=== PATIENT | male | born 1970 | race African-American/Black ===

== ENCOUNTER 2017-03-06 16:06 | Emergency (ER) | payer MEDICARE, OTHER ==
[2017-03-06 16:14] VITALS: BP 127/82
--- NOTE | 2017-03-06 16:24 | ER Document Report ---
ED GI/ - General Chief Complaint: Urinary Problem Stated Complaint: FREQUENT URINATION Time Seen by Provider: 03/06/17 16:21 Mode of Arrival: Ambulatory Information source: Patient, Relative TRAVEL OUTSIDE OF THE [place] IN LAST 30 DAYS: No - HPI Patient complains to provider of: Hematuria - mother states pt. has been having frequency and hematuria for the past 2-3 days. - Related Data Allergies/Adverse Reactions: No Known Allergies Allergy (Verified 03/06/17 16:11) Past Medical History - General Information source: Relative - Social History Smoking Status: Never Smoker Cigarette use (# per day): No Chew tobacco use (# tins/day): No Smoking Education Provided: No Family History: Reviewed & Not Pertinent Malignancy Medical History: Reports Hx Brain Cancer - Immunizations Hx Diphtheria, Pertussis, Tetanus Vaccination: Yes Review of Systems - Review of Systems Constitutional: No symptoms reported Cardiovascular: No symptoms reported Respiratory: No symptoms reported Gastrointestinal: No symptoms reported Genitourinary: See HPI, Frequency, Hematuria Musculoskeletal: No symptoms reported -: Yes All other systems reviewed and negative Physical Exam - Vital signs Vitals: Temp Pulse Resp BP Pulse Ox 98.8 F 100 16 127/82 H 95 03/06/17 16:13 03/06/17 16:13 03/06/17 16:13 03/06/17 16:13 03/06/17 16:13 - General General appearance: Appears well In distress: None - Respiratory Respiratory status: No respiratory distress Breath sounds: Normal - Cardiovascular Rhythm: Regular Heart sounds: Normal auscultation - Abdominal Inspection: Normal Tenderness: Nontender Course - Vital Signs Vital signs: Temp Pulse Resp BP Pulse Ox 98.8 F 100 16 127/82 H 95 03/06/17 16:13 03/06/17 16:13 03/06/17 16:13 03/06/17 16:13 03/06/17 16:13
[2017-03-06 17:41] LABS: APPEARANCE,URINE CLEAR; BILIRUBIN,URINE NEGATIVE (NEGATIVE); GLUCOSE, URINE NEGATIVE (NEGATIVE); KETONES,URINE NEGATIVE (NEGATIVE); LEUKOCYTE ESTERASE,URINE TRACE (NEGATIVE); NITRITE,URINE NEGATIVE (NEGATIVE); PROTEIN,URINE NEGATIVE (NEGATIVE); URINE SPECIFIC GRAVITY 1.021; UROBILINOGEN,URINE NEGATIVE mg/dL (<2.0)
== END 2017-03-06 17:56 | disposition home or self-care (01) ==
LOC: ER 16:06
DX: N30.00 Acute cystitis without hematuria (principal)
CPT/HCPCS: 81001; 99283

== ENCOUNTER 2017-03-08 10:36 | Emergency (ER) | payer MEDICARE, OTHER ==
[2017-03-08] MEDS ORDERED: NORMAL SALINE 1000 ML 1,000 ML IV ONE (11:28)
[2017-03-08] MEDS ORDERED: METHYLPREDNISOLONE INJ 125 MG/2 ML SDV IV ONE (11:28)
--- NOTE | 2017-03-08 11:31 | ER Document Report ---
ED Medical Screen (RME) - General Chief Complaint: Allergic Reaction Stated Complaint: POSSIBLE ALLERGIC REACTION Time Seen by Provider: 03/08/17 11:27 Notes: Patient is brought in by mom. Patient has a chronic diagnosis of brain tumor. He was recently seen here and diagnosed with a urinary tract infection. He has taken several days of p.o. Bactrim. Today he began to have swelling and erythema of the upper extremities and trunk. He denies any problems breathing or swallowing. No oral lesions have been noted. Patient also claims to have decreased hearing in the left ear and family states they noticed discharge from this here today. On exam the left ear does appear infected. The right ear is occluded with cerumen. TRAVEL OUTSIDE OF THE [place] IN LAST 30 DAYS: No - Related Data Allergies/Adverse Reactions: No Known Allergies Allergy (Verified 03/08/17 10:49) Past Medical History - Social History Chew tobacco use (# tins/day): No Frequency of alcohol use: None Drug Abuse: None - Past Medical History Cardiac Medical History: Reports: Hx Hypertension Renal/ Medical History: Denies: Hx Peritoneal Dialysis Malignancy Medical History: Reports Hx Brain Cancer - Immunizations Hx Diphtheria, Pertussis, Tetanus Vaccination: Yes Physical Exam - Vital signs Vitals: Temp Pulse Resp BP Pulse Ox 98.6 F 109 H 18 116/74 98 03/08/17 10:51 03/08/17 10:51 03/08/17 10:51 03/08/17 10:51 03/08/17 10:51 Course - Vital Signs Vital signs: Temp Pulse Resp BP Pulse Ox 98.6 F 109 H 18 116/74 98 03/08/17 10:51 03/08/17 10:51 03/08/17 10:51 03/08/17 10:51 03/08/17 10:51
[2017-03-08 12:38] LABS: ABSOLUTE EOSINOPHILS # (AUTO) 0.2 10^3/uL (0.0-0.6); ABSOLUTE LYMPHOCYTES (AUTO) 1.6 10^3/uL (0.5-4.7); ABSOLUTE MONOCYTES (AUTO) 0.4 10^3/uL (0.1-1.4); ABSOLUTE NEUT (AUTO) 11.1 10^3/uL (1.7-8.2); BASOPHILS % (AUTO) 0.4 % (0-2); EOSINOPHILS % (AUTO) 1.2 % (0-6); HEMATOCRIT 44.5 % (37.9-51.0); HEMOGLOBIN 14.8 g/dL (13.5-17.0); HGB HCT DIFFERENCE -0.1; LYMPHOCYTES % (AUTO) 12.2 % (13-45); MEAN CORPUSCULAR HEMOGLOBIN 29.3 pg (27.0-33.4); MEAN CORPUSCULAR HGB CONC 33.3 g/dL (32.0-36.0); MEAN CORPUSCULAR VOLUME 88 fl (80-97); MONOCYTES % (AUTO) 3.2 % (3-13); RED BLOOD COUNT 5.06 10^6/uL (4.35-5.55); RED CELL DISTRIBUTION WIDTH 14.4 % (11.5-14.0); WHITE BLOOD COUNT 13.4 10^3/uL (4.0-10.5)
[2017-03-08 12:57] LABS: ALANINE AMINOTRANSFERASE 38 U/L (21-72); ALBUMIN 3.5 g/dL (3.5-5.0); ALKALINE PHOSPHATASE 59 U/L (38-126); ANION GAP 15 (5-19); ASPARTATE AMINO TRANSFERASE 42 U/L (17-59); BILIRUBIN,DIRECT 0.3 mg/dL (0.0-0.4); BILIRUBIN,TOTAL 0.5 mg/dL (0.2-1.3); BLOOD UREA NITROGEN 15 mg/dL (7-20); CALCIUM 8.6 mg/dL (8.4-10.2); CARBON DIOXIDE 24 mmol/L (22-30); CHLORIDE 102 mmol/L (98-107); CREATININE RESULT 1.35 mg/dL (0.52-1.25); GLUCOSE 98 mg/dL (75-110); POTASSIUM 4.3 mmol/L (3.6-5.0); SODIUM 140.7 mmol/L (137-145); TOTAL PROTEIN 5.5 g/dL (6.3-8.2)
--- NOTE | 2017-03-08 13:51 | ER Document Report ---
ED Allergic Reaction - General Chief Complaint: Allergic Reaction Stated Complaint: POSSIBLE ALLERGIC REACTION Time Seen by Provider: 03/08/17 11:27 Mode of Arrival: Wheelchair Information source: Patient, Parent Notes: Patient has a history of brain tumor since . He states that he was recently seen here for a urinary tract infection and given Septra. He has taken his first dose this morning and then developed a rash. He does not have any known history of allergies to medications. He denies any trouble speaking or swallowing. No trouble breathing. He has not noticed any abnormal sensations in his mouth or tongue swelling. No lip soreness swelling or lesions. Patient has not been lightheaded or dizzy. Symptoms of been consistent with an allergic reaction consisting of erythema and swelling of the extremities and trunk. Nothing has made it better or worse. It is been constant. There is been mild to moderate. There is no radiation of the symptoms. TRAVEL OUTSIDE OF THE [place] IN LAST 30 DAYS: No - Related Data Allergies/Adverse Reactions: sulfamethoxazole [From Bactrim] Allergy (Verified 03/08/17 11:30) trimethoprim [From Bactrim] Allergy (Verified 03/08/17 11:30) Past Medical History - General Information source: Patient, Parent - Social History Smoking Status: Never Smoker Chew tobacco use (# tins/day): No Frequency of alcohol use: None Drug Abuse: None Family History: Reviewed & Not Pertinent Patient has suicidal ideation: No Patient has homicidal ideation: No - Past Medical History Cardiac Medical History: Reports: Hx Hypertension Renal/ Medical History: Denies: Hx Peritoneal Dialysis Malignancy Medical History: Reports Hx Brain Cancer - Immunizations Hx Diphtheria, Pertussis, Tetanus Vaccination: Yes Review of Systems - Review of Systems Constitutional: denies: Chills, Fever Cardiovascular: denies: Chest pain, Palpitations Respiratory: denies: Cough, Short of breath -: Yes All other systems reviewed and negative Physical Exam - Vital signs Vitals: Temp Pulse Resp BP Pulse Ox 98.6 F 109 H 18 116/74 98 03/08/17 10:51 03/08/17 10:51 03/08/17 10:51 03/08/17 10:51 03/08/17 10:51 Interpretation: Tachycardic - General General appearance: Appears well, Alert In distress: None - No distress. Abdomen is okay - HEENT Head: Normocephalic, Atraumatic Eyes: Normal Pupils: PERRL External canal: Cerumen impaction, Other - Right canal is occluded with cerumen Tympanic membrane: Bulging, Injected, Purulent effusion, Other - Left membrane is erythematous and injected and bulging with some surrounding effusion. - Respiratory Respiratory status: No respiratory distress Chest status: Nontender Breath sounds: Normal Chest palpation: Normal - Cardiovascular Rhythm: Regular, Other - Repeat exam shows pulse to be 88 at 1:40 PM on my exam. Heart sounds: Normal auscultation Murmur: No - Abdominal Inspection: Normal Distension: No distension Bowel sounds: Normal Tenderness: Nontender Organomegaly: No organomegaly - Back Back: Normal, Nontender - Extremities General upper extremity: Other - Bilateral upper extremities have urticaria and erythema. He also has a nonblanching erythematous rash on the left upper extremity. General lower extremity: Normal inspection, Nontender, Normal color, Normal temperature. No: Marjorie's sign - Neurological Neuro grossly intact: Yes Cognition: Normal [place] Coma Scale Eye Opening: Spontaneous [place] Coma Scale Verbal: Oriented [place] Coma Scale Motor: Obeys Commands [place] Coma Scale Total: 15 Additional motor exam normals: Weakness, Other - Right upper extremity and lower extremities. This is chronic. Sensory: Normal - Psychological Associated symptoms: Normal affect, Normal mood - Skin Skin Temperature: Warm Skin Moisture: Dry Skin Color: Other - Patient has diffuse urticaria and erythema of the upper extremities and trunk. He also has a separate rash which seems to consistently nonblanching erythema and macules. There are no oral lesions or lip lesions. Course - Re-evaluation Re-evalutation: 03/08/17 13:50 On reexam at 140. Patient is sleeping comfortably but easily awoken. He denies any symptoms. The rash appears to be resolving. There is no evidence of Pineda-Rayo syndrome. There is no evidence of more than one system involvement. Vital signs are unremarkable. - Vital Signs Vital signs: Temp Pulse Resp BP Pulse Ox 98.6 F 109 H 18 116/74 98 03/08/17 10:51 03/08/17 10:51 03/08/17 10:51 03/08/17 10:51 03/08/17 10:51 - Laboratory Result Diagrams: 03/08/17 12:15 03/08/17 12:15 Laboratory results interpreted by me: 03/08/17 03/08/17 12:15 12:15 WBC 13.4 H RDW 14.4 H Seg Neutrophils % 83.0 H Lymphocytes % 12.2 L Absolute Neutrophils 11.1 H Creatinine 1.35 H Est GFR (Non-Af Amer) 56 L Total Protein 5.5 L Discharge - Discharge Clinical Impression: Left otitis media with effusion Allergic drug reaction Qualifiers: Encounter type: initial encounter Qualified Code(s): T78.40XA - Allergy, unspecified, initial encounter Condition: Stable Disposition: HOME, SELF-CARE Instructions: Otitis Media ([facility]), Acute Allergic Reaction to Drugs ([facility]) Additional Instructions: Please be rechecked by your primary care physician in 2-3 days. Your creatinine (which is a measure of your kidney function) is mildly elevated. This is most likely due to some mild dehydration. Please increase your fluid intake and have your creatinine rechecked at her next doctor's visit. Prescriptions: Cefdinir 300 mg PO BID 7 Days #14 capsule Diphenhydramine HCl [Benadryl] 25 mg PO Q6 PRN 4 Days #16 capsule PRN Reason: Prednisone 50 mg PO DAILY 5 Days #5 tablet
[2017-03-08 14:28] VITALS: BP 113/58
== END 2017-03-08 14:24 | disposition home or self-care (01) ==
LOC: ER 10:36
DX: L27.0 Generalized skin eruption due to drugs and medicaments taken internally (principal); T49.0X5A Adverse effect of local antifungal, anti-infective and anti-inflammatory drugs, initial encounter; H65.92 Unspecified nonsuppurative otitis media, left ear; N39.0 Urinary tract infection, site not specified; I10 Essential (primary) hypertension; R00.0 Tachycardia, unspecified; R53.1 Weakness; Z85.841 Personal history of malignant neoplasm of brain
CPT/HCPCS: 99283; 96361; 96374; 36415; 85025; 80053; J2930; J7030

== ENCOUNTER → 2017-10-12 | Outpatient (CLI) | payer MEDICARE, OTHER ==
--- NOTE | 2017-10-12 15:21 | RADIOLOGY REPORT (SQ) ---
EXAM DESCRIPTION: VENOUS UNILATERAL LOWER COMPLETED DATE/TIME: 10/12/2017 3:13 pm REASON FOR STUDY: RLE PAIN, ACUTE EMBOLI I82.401 ACUTE EMBOLISM AND THOMBOS UNSP DEEP VEINS OF R LO W COMPARISON: None. TECHNIQUE: Dynamic and static dobbins scale and color images acquired of the right leg venous system. S elected spectral images acquired with additional compression and augmentation maneuvers. The contrala teral common femoral vein and saphenofemoral junction were also imaged. Images stored on PACS. LIMITATIONS: None. FINDINGS: COMMON FEMORAL: Normal phasicity, compression and augmentation. No visualized echogenic ma terial on dobbins scale. No defects on color images. FEMORAL: Normal compression and augmentation. No visualized echogenic material on dobbins scale. No defe cts on color images. POPLITEAL: Normal compression, augmentation. No visualized echogenic material on dobbins scale. No defec ts on color images. CALF VESSELS: Normal compression, augmentation. No visualized echogenic material on dobbins scale. No de fects on color images. GSV and SSV: Normal compression, augmentation. No visualized echogenic material on dobbins scale. No def ects on color images. ANY DEEP VENOUS INSUFFICIENCY: No. ANY EVIDENCE OF POPLITEAL CYST: No. OTHER: No other significant finding. CONTRALATERAL COMMON FEMORAL VEIN AND SAPHENOFEMORAL JUNCTION: Normal phasicity, compression and augmentation. No visualized echogenic material on dobbins scale. No de fects on color images. IMPRESSION: NO EVIDENCE OF DVT OR SVT IN THE RIGHT LEG. TECHNICAL DOCUMENTATION: JOB ID: [id number] [employer]- All Rights Reserved Reading location - IP/workstation name: [email or web address]
== END ==
LOC: SP 13:58
PROVIDERS: ATTEND Podiatrist Foot & Ankle Surgery
DX: I82.401 Acute embolism and thrombosis of unspecified deep veins of right lower extremity (principal)
CPT/HCPCS: 93971

== ENCOUNTER 2018-02-07 18:06 | Emergency (ER) | payer MEDICARE, OTHER ==
[2018-02-07] MEDS ORDERED: PREDNISONE 20 MG TABLET PO ONE (19:36)
[2018-02-07] MEDS ORDERED: FAMOTIDINE 20 MG TABLET PO ONE (19:37)
--- NOTE | 2018-02-07 19:39 | ER Document Report ---
HPI - HPI Pain Level: 0 Notes: Patient is a 47-year-old male who presents with chief complaint of possible allergic reaction. Patient's family member at bedside state that he was having some itching so she gave him [id number] generic diphenhydramine. She reports that he then developed mild hives. She believes he is allergic to the diphenhydramine. Patient denies any difficulty swallowing, is speaking in full and complete sentences. - CONSTITUTIONAL Constitutional: DENIES: Fever, Chills - EENT EENT: DENIES: Sore Throat, Ear Pain, Eye problems - NEURO Neurology: DENIES: Headache, Weakness, Vision blurred, Dizzinesss / Vertigo - CARDIOVASCULAR Cardiovascular: DENIES: Chest pain - RESPIRATORY Respiratory: DENIES: Trouble Breathing, Coughing - GASTROINTESTINAL Gastrointestinal: DENIES: Abdominal Pain, Black / Bloody Stools - URINARY Urinary: DENIES: Dysuria, Urgency, Frequency - MUSCULOSKELETAL Musculoskeletal: DENIES: Extremity pain Past Medical History - General Information source: Patient - Social History Smoking Status: Never Smoker Chew tobacco use (# tins/day): No Frequency of alcohol use: None Drug Abuse: None Family History: Reviewed & Not Pertinent Patient has suicidal ideation: No Patient has homicidal ideation: No - Past Medical History Cardiac Medical History: Reports: Hx Hypertension Renal/ Medical History: Denies: Hx Peritoneal Dialysis Malignancy Medical History: Reports Hx Brain Cancer - Immunizations Hx Diphtheria, Pertussis, Tetanus Vaccination: Yes Vertical Provider Document - CONSTITUTIONAL Notes: PHYSICAL EXAMINATION: GENERAL: Well-appearing, well-nourished and in no acute distress. HEAD: Atraumatic, normocephalic. EYES: Pupils equal round extraocular movements intact, conjunctiva are normal. ENT: Nares patent, no airway swelling noted, patient speaking in full and complete sentences and is able to swallow without difficulty. NECK: Normal range of motion LUNGS: No respiratory distress Musculoskeletal: Normal range of motion NEUROLOGICAL: Normal speech, normal gait. PSYCH: Normal mood, normal affect. SKIN: Warm, Dry, normal turgor, scattered red rash consistent with hives noted across chest and back, rash is blanchable. - INFECTION CONTROL TRAVEL OUTSIDE OF THE [place] IN LAST 30 DAYS: No Course - Re-evaluation Re-evalutation: Patient's examination is consistent with mild allergic reaction. Will give patient both Pepcid and prednisone, will hold off on diphenhydramine as family member thinks this is the cause of the allergic reaction. Patient will be discharged home in stable condition. - Vital Signs Vital signs: Temp Pulse Resp BP Pulse Ox 97.8 F 104 H 16 124/69 98 02/07/18 18:18 10 18:18 02/07/18 18:18 02/07/18 18:18 02/07/18 18:18 Discharge - Discharge Clinical Impression: Rash Condition: Stable Disposition: HOME, SELF-CARE Additional Instructions: It is unclear what your rash is being caused by. Please take the prednisone and the Pepcid this should help calm down your symptoms. Please follow-up with your primary care provider, call them tomorrow for an appointment I would like you to be reevaluated by them in the next 3 days. Return to the emergency department if you develop worsening symptoms such as difficulty breathing, shortness of breath or difficulty swallowing. Prescriptions: Famotidine [Pepcid 40 mg Tablet] 40 mg PO BID #10 tablet Prednisone [Deltasone 20 mg Tablet] 3 tab PO DAILY 4 Days #12 tablet
[2018-02-07 19:52] VITALS: BP 104/57
== END 2018-02-07 19:52 | disposition home or self-care (01) ==
LOC: ER 18:06
DX: L50.0 Allergic urticaria (principal); T78.40XA Allergy, unspecified, initial encounter; X58.XXXA Exposure to other specified factors, initial encounter; I10 Essential (primary) hypertension
CPT/HCPCS: 99282; A9270 ×2; J7512

== ENCOUNTER 2018-02-09 12:31 | Emergency (ER) | payer MEDICARE ==
--- NOTE | 2018-02-09 13:09 | ER Document Report ---
ED Medical Screen (RME) - General Chief Complaint: Chest Pain Stated Complaint: CHEST PAIN, RASH Time Seen by Provider: 02/09/18 13:03 TRAVEL OUTSIDE OF THE [place] IN LAST 30 DAYS: No - HPI Notes: 02/09/18 13:08 Chest pain and a rash - Related Data Allergies/Adverse Reactions: sulfamethoxazole [From Bactrim] Allergy (Verified 02/09/18 12:32) trimethoprim [From Bactrim] Allergy (Verified 02/09/18 12:32) Past Medical History - Social History Chew tobacco use (# tins/day): No Frequency of alcohol use: None Drug Abuse: None - Past Medical History Cardiac Medical History: Reports: Hx Hypertension Renal/ Medical History: Denies: Hx Peritoneal Dialysis Malignancy Medical History: Reports Hx Brain Cancer - Immunizations Hx Diphtheria, Pertussis, Tetanus Vaccination: Yes Review of Systems - Review of Systems Cardiovascular: Chest pain Skin: Rash Physical Exam - Vital signs Vitals: Temp Pulse Resp BP Pulse Ox 98.1 F 88 20 127/56 H 97 02/09/18 12:59 02/09/18 12:59 02/09/18 12:59 02/09/18 12:59 02/09/18 12:59 - Respiratory Respiratory status: No respiratory distress Chest status: Nontender Breath sounds: Normal Chest palpation: Normal - Cardiovascular Rhythm: Regular Heart sounds: Normal auscultation Course - Vital Signs Vital signs: Temp Pulse Resp BP Pulse Ox 98.1 F 88 20 127/56 H 97 02/09/18 12:59 02/09/18 12:59 02/09/18 12:59 02/09/18 12:59 02/09/18 12:59
[2018-02-09 13:55] LABS: HEMATOCRIT 40.8 % (37.9-51.0); HEMOGLOBIN 13.5 g/dL (13.5-17.0); MEAN CORPUSCULAR HGB CONC 33.1 g/dL (32.0-36.0); MEAN CORPUSCULAR VOLUME 88 fl (80-97); PLATELET COUNT 290 10^3/uL (150-450); RED BLOOD COUNT 4.67 10^6/uL (4.35-5.55); RED CELL DISTRIBUTION WIDTH 14.5 % (11.5-14.0)
--- NOTE | 2018-02-09 13:55 | RADIOLOGY REPORT (SQ) ---
EXAM DESCRIPTION: CHEST 2 VIEWS COMPLETED DATE/TIME: 02/09/2018 1:44 pm REASON FOR STUDY: cp COMPARISON: None. EXAM PARAMETERS: NUMBER OF VIEWS: two views TECHNIQUE: Digital Frontal and Lateral radiographic views of the chest acquired. RADIATION DOSE: NA LIMITATIONS: none FINDINGS: LUNGS AND PLEURA: No opacities, masses or pneumothorax. No pleural effusion. MEDIASTINUM AND HILAR STRUCTURES: No masses or contour abnormalities. HEART AND VASCULAR STRUCTURES: Heart normal size. No evidence for failure. BONES: No acute findings. HARDWARE: None in the chest. OTHER: No other significant finding. IMPRESSION: NO ACUTE RADIOGRAPHIC FINDING IN THE CHEST. TECHNICAL DOCUMENTATION: JOB ID: [id number] [employer]- All Rights Reserved Reading location - IP/workstation name: [email or web address]
--- NOTE | 2018-02-09 14:01 | ER Document Report ---
ED General - General Chief Complaint: Chest Pain Stated Complaint: CHEST PAIN, RASH Time Seen by Provider: 02/09/18 13:03 Notes: Patient is a 47-year-old male with developmental delay that presents to the emergency department for chief complaint of left chest pain. Patient has pain over the last few days with reaching with his left arm, when he is stretching to reach for something. He points to his chest and towards his shoulder. He does not have pain when he is not reaching for anything. Has not had shortness of breath. The patient is a poor historian due to his developmental delay. Mother states he just started complaining of this yesterday. He was recently in the emergency department and was being treated for a skin rash along his neck back and arms, and was started on prednisone, he has had 2 doses so far. She is also concerned about this. Patient denies having any pain in his chest at this time, and denies any recent fevers, chills, cough or shortness of breath or difficulty breathing. Past Medical History: Hypertension, history of brain tumor Past Surgical History: Radiation to the brain Social History: Denies tobacco, alcohol or drug use Family History: Reviewed and noncontributory for presenting illness Allergies: Reviewed, see documented allergy list. REVIEW OF SYSTEMS: Unless otherwise stated in this report the patient's positive and negative responses for review of systems for constitutional, eyes, ENT, cardiovascular, respiratory, gastrointestinal, neurological, genitourinary, musculoskeletal, and integumentary systems and related systems to the presenting problem are either as stated in the HPI or were not pertinent or were negative for the symptoms and/or complaints related to the presenting medical problem. PHYSICAL EXAMINATION: Vital signs reviewed, nursing noted reviewed. GENERAL: Well-appearing, well-nourished and in no acute distress. HEAD: Atraumatic, normocephalic. EYES: Eyes appear normal, extraocular movements intact, sclera anicteric, conjunctiva are normal. ENT: nares patent, oropharynx clear without exudates. Moist mucous membranes. NECK: Normal range of motion, supple without lymphadenopathy LUNGS: Breath sounds clear to auscultation bilaterally and equal. No wheezes rales or rhonchi. Reproducible chest wall tenderness with palpation HEART: Regular rate and rhythm without murmurs ABDOMEN: Soft, nontender, normoactive bowel sounds. No rebound, guarding, or rigidity. No masses appreciated. EXTREMITIES: Nontender, good range of motion, no pitting or edema. NEUROLOGICAL: No focal neurological deficits. The right upper extremity, has minimal movement, this is chronic according to the patient's mother, from his brain tumor that he had a 1 years old, left upper extremity has good strength, as well as the left and right lower extremities bilaterally. PSYCH: Normal mood, normal affect. SKIN: Warm, Dry, normal turgor, erythematous skin rash noted to the neck, shoulders, and right arm, consistent with eczema TRAVEL OUTSIDE OF THE [place] IN LAST 30 DAYS: No - Related Data Allergies/Adverse Reactions: sulfamethoxazole [From Bactrim] Allergy (Verified 02/09/18 12:32) trimethoprim [From Bactrim] Allergy (Verified 02/09/18 12:32) Past Medical History - Social History Smoking Status: Never Smoker Chew tobacco use (# tins/day): No Frequency of alcohol use: None Drug Abuse: None Family History: Reviewed & Not Pertinent Patient has suicidal ideation: No Patient has homicidal ideation: No - Past Medical History Cardiac Medical History: Reports: Hx Hypertension Renal/ Medical History: Denies: Hx Peritoneal Dialysis Malignancy Medical History: Reports Hx Brain Cancer - Immunizations Hx Diphtheria, Pertussis, Tetanus Vaccination: Yes Physical Exam - Vital signs Vitals: Temp Pulse Resp BP Pulse Ox 98.1 F 88 20 127/56 H 97 02/09/18 12:59 02/09/18 12:59 02/09/18 12:59 02/09/18 12:59 02/09/18 12:59 Course - Re-evaluation Re-evalutation: Presentation of chest pain in an otherwise well appearing patient. Low clinical suspicion for ACS given clinical history, exam, EKG without ST elevations or depressions, and negative initial troponin. HEART score less than or equal to 3. PE also seems unlikely given clinical history, absence of tachycardia or dyspnea. Patient is PERC criteria negative. CXR without evidence of pneumothorax or pneumonia. No widened mediastinum. Aortic dissection also seems unlikely given history, symmetric pulses, CXR, and vitals. HEART Score: History 0 ECG 0 Age 1 Risk Factors 1 Troponin 0 Total: 2 Chest pain in a patient without evidence of cardiac or other serious etiology on workup today. I discussed with patient that, based on their age, risk factors and emergency department testing today, the likelihood that their symptoms are related to a heart attack is very low (estimated risk of heart attack or over the next 30 days of less than 1%). The patient demonstrates decision making capacity and has verbalized an understanding of these risks to me. Based on this, the patient has chosen to follow-up as an outpatient. Usual chest pain return precautions reviewed. The patient states understanding and agreement with this plan. On his blood work he does have a mild leukocytosis, this is most likely secondary to the patient's prednisone use currently, it is neutrophil predominant Mother was advised to treat the rash, with moisturizing lotions, and to finish the prednisone and follow-up with primary care physician. - Vital Signs Vital signs: Temp Pulse Resp BP Pulse Ox 98.1 F 88 20 127/56 H 97 02/09/18 12:59 02/09/18 12:59 02/09/18 12:59 02/09/18 12:59 02/09/18 12:59 - Laboratory Result Diagrams: 02/09/18 12:25 02/09/18 12:25 Laboratory results interpreted by me: 02/09/18 02/09/18 12:25 12:25 WBC 16.0 H RDW 14.5 H Abs Neuts (Manual) 11.4 H Abs Monocytes (Manual) 2.1 H Carbon Dioxide 33 H Discharge - Discharge Clinical Impression: Rash Chest pain Qualifiers: Chest pain type: unspecified Qualified Code(s): R07.9 - Chest pain, unspecified Condition: Stable Disposition: HOME, SELF-CARE Instructions: Chest Wall Pain ([facility]), Atopic Dermatitis (Eczema) ([facility]) Additional Instructions: Please follow-up with the primary care physician, you can use topical moisturizing creams, the best ones for this are CeraVe and Lubriderm lotions that can help with itching and the rash. Referrals: DEONNA FARAH MD [ACTIVE STAFF] - Follow up as needed (or his primary care physician)
[2018-02-09 14:04] LABS: ALANINE AMINOTRANSFERASE 27 U/L (21-72); ALBUMIN 4.1 g/dL (3.5-5.0); ALKALINE PHOSPHATASE 77 U/L (38-126); ANION GAP 7 (5-19); ASPARTATE AMINO TRANSFERASE 25 U/L (17-59); BILIRUBIN,DIRECT 0.2 mg/dL (0.0-0.4); BILIRUBIN,TOTAL 0.4 mg/dL (0.2-1.3); BLOOD UREA NITROGEN 12 mg/dL (7-20); CALCIUM 9.4 mg/dL (8.4-10.2); CARBON DIOXIDE 33 mmol/L (22-30); CHLORIDE 102 mmol/L (98-107); CREATINE KINASE 140 U/L (55-170); GLUCOSE 87 mg/dL (75-110); POTASSIUM 3.6 mmol/L (3.6-5.0); SODIUM 141.7 mmol/L (137-145); TOTAL PROTEIN 6.8 g/dL (6.3-8.2)
[2018-02-09 14:13] LABS: ABSOLUTE LYMPHOCYTES# (MANUAL) 2.6 10^3/uL (0.5-4.7); ABSOLUTE MONOCYTES # (MANUAL) 2.1 10^3/uL (0.1-1.4); ABSOLUTE NEUTROPHILS# (MANUAL) 11.4 10^3/uL (1.7-8.2); BASOPHILS % (MANUAL) 0 % (0-2); EOSINOPHILS % (MANUAL) 0 % (0-6); LYMPHOCYTES % (MANUAL) 14 % (13-45); MONOCYTES % (MANUAL) 13 % (3-13); SEGMENTED NEUTROPHILS % (MAN) 71 % (42-78); TOTAL CELLS COUNTED 100
[2018-02-09 14:14] LABS: ANISOCYTOSIS SLIGHT; OVALOCYTES SLIGHT; PLATELET COMMENT ADEQUATE; POIKILOCYTOSIS SLIGHT
[2018-02-09 14:15] LABS: CREATINE KINASE MB 1.77 ng/mL (<4.55); TROPONIN I < 0.012 ng/mL
[2018-02-09 14:39] VITALS: BP 118/56
--- NOTE | 2018-02-09 22:37 | EKG REPORT ---
SEVERITY:- BORDERLINE ECG - SINUS RHYTHM BORDERLINE LEFT AXIS DEVIATION BORDERLINE T ABNORMALITIES, ANT-LAT LEADS : Confirmed by: Sylvia Palomino 09-Feb-2018 22:36:41
== END 2018-02-09 14:48 | disposition home or self-care (01) ==
LOC: ER 12:31
DX: R21 Rash and other nonspecific skin eruption (principal); R07.9 Chest pain, unspecified; M79.602 Pain in left arm; R62.50 Unspecified lack of expected normal physiological development in childhood; I10 Essential (primary) hypertension
CPT/HCPCS: 36415; 71046; 80053; 82550; 82553; 84484; 85025; 93005; 93010; 99285

== ENCOUNTER → 2019-08-30 | Outpatient (CLI) | payer MEDICARE, OTHER ==
--- NOTE | 2019-08-31 09:26 | RADIOLOGY REPORT (SQ) ---
EXAM DESCRIPTION: MRI HEAD COMBO IMAGES COMPLETED DATE/TIME: 08/30/2019 5:22 pm REASON FOR STUDY: D49.7 NEOPLM OF UNSP BEHAV OF ENDO GLANDS AND OTH PRT NERVOUS SYS D49.7 NEOPLM OF UNSP BEHAV OF ENDO GLANDS AND OTH PRT NERVOU COMPARISON: 01/31/2016 TECHNIQUE: Multiplanar imaging includes noncontrasted T1, T2, FLAIR, diffusion with ADC map and post gadolinium contrast T1 sequences. Images stored on PACS. CONTRAST TYPE AND DOSE: 15 mL Prohance. RENAL FUNCTION: Not indicated. ACR Type II contrast agent associated with few, if any, unconfounded cases of NSF LIMITATIONS: Motion artifact. FINDINGS: There has been interval increase in size of heterogeneously enhancing extra-axial mass lef t parietal convexity, previously 1.2 x 0.9 cm, now 4.7 x 2.9 cm. Dominant similar mass left sylvian fissure 4.6 x 4.5 cm AP by transverse diameter, stable. Several additional smaller extra-axial harshad s left cerebral hemisphere are not significantly changed. There is been increase in associated vasog enic edema with 8 mm of iqtx-nw-[id number] midline shift. No hemorrhage. Posterior fossa unremarkable. IMPRESSION: Increase in size of 1 of multiple meningiomas. Worsening associated vasogenic edema wit h 8 mm of mzho-io-[id number] midline shift. No hemorrhage. EVIDENCE OF ACUTE STROKE: NO. TECHNICAL DOCUMENTATION: JOB ID: [id number] 2010 [email or web address]- All Rights Reserved Reading location - IP/workstation name: [email or web address]
== END ==
LOC: RAD 16:06
PROVIDERS: ATTEND Neurological Surgery
DX: D47.9 Neoplasm of uncertain behavior of lymphoid, hematopoietic and related tissue, unspecified (principal)
CPT/HCPCS: 82565; 70553; A9576

== ENCOUNTER 2019-10-01 18:49 | Emergency (ER) | payer MEDICARE, OTHER ==
--- NOTE | 2019-10-01 19:11 | ER Document Report ---
ED Medical Screen (RME) - General Chief Complaint: Leg Swelling Stated Complaint: ALTERED MENTAL STATUS Time Seen by Provider: 10/01/19 19:05 Mode of Arrival: Medic Information source: Relative Notes: 48-year-old male presented to ED for swelling to the right leg the last 2 days. Mother states he has 5 brain tumors and has been altered for about 2 to 3 weeks. She states that he has seen multiple doctors since this started. He states he did see a urologist on September 17 for hematuria. He states she states his walking is much worse than it has been. She states he has had brain tumor since he was 1 years old but he was pretty much independent until about 3 weeks to a month ago at which time she has had to do total body care. Mother is 84 years old. I have greeted and performed a rapid initial assessment of this patient. A comprehensive ED assessment and evaluation of the patient, analysis of test results and completion of medical decision making process will be conducted by an additional ED providers. TRAVEL OUTSIDE OF THE [place] IN LAST 30 DAYS: No - Related Data Allergies/Adverse Reactions: Sulfa (Sulfonamide Antibiotics) Allergy (Verified 10/01/19 18:58) sulfamethoxazole [From Bactrim] Allergy (Verified 10/01/19 18:58) trimethoprim [From Bactrim] Allergy (Verified 10/01/19 18:58) Past Medical History - Social History Chew tobacco use (# tins/day): No Frequency of alcohol use: None Drug Abuse: None - Past Medical History Cardiac Medical History: Reports: Hx Hypertension Renal/ Medical History: Denies: Hx Peritoneal Dialysis Malignancy Medical History: Reports Hx Brain Cancer - Immunizations Hx Diphtheria, Pertussis, Tetanus Vaccination: Yes Physical Exam - Vital signs Vitals: Temp Pulse Resp BP Pulse Ox 98.4 F 90 18 121/63 95 10/01/19 18:55 10/01/19 18:55 10/01/19 18:55 10/01/19 18:55 10/01/19 18:55 Course - Vital Signs Vital signs: Temp Pulse Resp BP Pulse Ox 98.4 F 90 18 121/63 95 10/01/19 18:59 10/01/19 18:55 10/01/19 18:55 10/01/19 18:55 10/01/19 18:55
[2019-10-01 19:56] LABS: ABSOLUTE EOSINOPHILS # (AUTO) 0.2 10^3/uL (0.0-0.6); ABSOLUTE LYMPHOCYTES (AUTO) 1.8 10^3/uL (0.5-4.7); ABSOLUTE MONOCYTES (AUTO) 0.6 10^3/uL (0.1-1.4); ABSOLUTE NEUT (AUTO) 6.1 10^3/uL (1.7-8.2); BASOPHILS % (AUTO) 0.5 % (0-2); EOSINOPHILS % (AUTO) 2.4 % (0-6); HEMATOCRIT 44.1 % (37.9-51.0); HEMOGLOBIN 14.7 g/dL (13.5-17.0); LYMPHOCYTES % (AUTO) 20.9 % (13-45); MEAN CORPUSCULAR HEMOGLOBIN 29.3 pg (27.0-33.4); MEAN CORPUSCULAR HGB CONC 33.3 g/dL (32.0-36.0); MEAN CORPUSCULAR VOLUME 88 fl (80-97); MONOCYTES % (AUTO) 6.7 % (3-13); PLATELET COUNT 258 10^3/uL (150-450); RED CELL DISTRIBUTION WIDTH 14.2 % (11.5-14.0); SEGMENTED NEUTROPHILS % (AUTO) 69.5 % (42-78); TOTAL CELLS COUNTED % (AUTO) 100 %; WHITE BLOOD COUNT 8.8 10^3/uL (4.0-10.5)
[2019-10-01 20:04] LABS: INTERNATIONAL RATION (INR) 0.99; PROTHROMBIN TIME 13.1 SEC (11.4-15.4)
[2019-10-01 20:05] LABS: PARTIAL THROMBOPLASTIN TIME 33.7 SEC (23.5-35.8)
[2019-10-01 20:08] LABS: ALBUMIN 4.4 g/dL (3.5-5.0); ALKALINE PHOSPHATASE 74 U/L (38-126); ANION GAP 7 (5-19); ASPARTATE AMINO TRANSFERASE 25 U/L (17-59); BILIRUBIN,TOTAL 0.2 mg/dL (0.2-1.3); BLOOD UREA NITROGEN 13 mg/dL (7-20); CARBON DIOXIDE 30 mmol/L (22-30); CHLORIDE 99 mmol/L (98-107); GLUCOSE 122 mg/dL (75-110); POTASSIUM 3.7 mmol/L (3.6-5.0); TOTAL PROTEIN 7.2 g/dL (6.3-8.2)
--- NOTE | 2019-10-01 23:53 | RADIOLOGY REPORT (SQ) ---
EXAM DESCRIPTION: US EXTREMITY VEINS UNILATERAL COMPLETED DATE/TME: 10/01/2019 19:06 CLINICAL HISTORY: 48 years, Male, Right leg pain and swelling COMPARISON: None. TECHNIQUE: Transverse and longitudinal sonographic images of the right lower extremity deep venous system LIMITATIONS: None. FINDINGS: No visible areas of thrombus. Normal compression and augmentation throughout. Doppler images are unremarkable IMPRESSION: Negative exam copyright 2010 [employer]- All Rights Reserved
--- NOTE | 2019-10-02 | ER Document Report ---
ED General - General Chief Complaint: Leg Swelling Stated Complaint: ALTERED MENTAL STATUS Time Seen by Provider: 10/01/19 19:05 Primary Care Provider: YAQUELIN HERMOSILLO DO [Primary Care Provider] - Follow up as needed Mode of Arrival: Medic Notes: Patient is a 48-year-old male with a history of brain tumor diagnosed at age 1 who presents emergency department today accompanied by his mother with a chief complaint of altered mental status. Mom reports at the age of 1 it was found that he had a tumor. They use some radiation therapy and he was better. She states he has had no problems since then until 2013 and they found he had another tumor after complaining of some headaches. He had gamma knife therapy to that tumor and had a recent MRI for follow-up and was found to have 5 new tu mors. He sees Dr. Elroy Anderson, neurologist at [facility]. Mom reports he was at baseline until about a week ago. She states about a month ago they stopped his Lasix because he was urinating too frequently. She states the doctor, urologist placed him on Flomax and took him off of Lasix. She states over the past 2 or 3 weeks since stopping Lasix he has had some edema in the lower extremities. She states that he has not any specific complaints of pain anywhere. She states for the past week now he has had an alteration in mental status however. She states that he is not as verbal as he usually is, does not respond to typical conversation and seems to be staring off into space a lot. She tried to get a hold of his neurologist today could not she was concerned so she brought him here for further evaluation and management. TRAVEL OUTSIDE OF THE [place] IN LAST 30 DAYS: No - Related Data Allergies/Adverse Reactions: Sulfa (Sulfonamide Antibiotics) Allergy (Verified 10/01/19 18:58) sulfamethoxazole [From Bactrim] Allergy (Verified 10/01/19 18:58) trimethoprim [From Bactrim] Allergy (Verified 10/01/19 18:58) Past Medical History - General Information source: Relative - Social History Smoking Status: Never Smoker Chew tobacco use (# tins/day): No Frequency of alcohol use: None Drug Abuse: None Family History: Reviewed & Not Pertinent Patient has homicidal ideation: No - Past Medical History Cardiac Medical History: Reports: Hx Hypertension Renal/ Medical History: Denies: Hx Peritoneal Dialysis Malignancy Medical History: Reports Hx Brain Cancer - Immunizations Hx Diphtheria, Pertussis, Tetanus Vaccination: Yes Review of Systems - Review of Systems -: Yes ROS unobtainable due to patient's medical condition Physical Exam - Vital signs Vitals: Temp Pulse Resp BP Pulse Ox 98.4 F 90 18 121/63 95 10/01/19 18:55 10/01/19 18:55 10/01/19 18:55 10/01/19 18:55 10/01/19 18:55 - General General appearance: Appears well, Alert In distress: None - HEENT Head: Normocephalic, Atraumatic Eyes: Normal Conjunctiva: Normal Extraocular movements intact: Yes Pupils: PERRL, Pinpoint Mucous membranes: Normal, Moist Neck: Supple - Respiratory Respiratory status: No respiratory distress Chest status: Nontender Breath sounds: Normal Chest palpation: Normal - Cardiovascular Rhythm: Regular Heart sounds: Normal auscultation Murmur: No - Abdominal Inspection: Normal Distension: No distension Bowel sounds: Normal Tenderness: Nontender Organomegaly: No organomegaly - Extremities General upper extremity: Normal inspection, Nontender, Normal color, Normal ROM, Normal temperature General lower extremity: Normal inspection, Nontender, Normal color, Normal ROM, Normal temperature, Normal weight bearing. No: Marjorie's sign Notes: No appreciable edema to the lower extremities. No erythema, increased warmth or pain - Neurological Neuro grossly intact: Yes Cognition: Confused, Inattentive [place] Coma Scale Eye Opening: Spontaneous Honey Coma Scale Verbal: Confused Speech: Other - Delayed Cranial nerves: Other - Unable to assess Sensory: Normal Notes: Unable to complete a full neurological exam, given patient's current altered mental status Course - Re-evaluation Re-evalutation: 10/02/19 03:25 3:22 AM after reviewing the results of the patient's CT scan I called [facility] to speak with the neurosurgeon on-call for Dr. Anderson, the patient's neurosurgeon. I spoke with Dr. Miranda, and we discussed the CT scan and the changes from the patient's prior MRIs for comparison. He recommended that this could go either way if the patient's mother wished to have the patient transferred to [facility] they would gladly accept and discuss next steps or since the patient is stable it would be okay if they went home and Dr. Miranda would have Dr. Anderson call the patient's mother in the morning to discuss further steps. The mother has elected to take the patient home rather than have him transferred. We will put the images on a disc as we cannot push them to widen at this time because our system is down and will not be operable until next Wednesday to my understanding. Patient's mom reports that member of her family is a caregiver to patients and is good with him and can help. She requests that this person be present when they go to [facility] and that they can carry the CD to the neurosurgeons office. Patient is stable. They will be discharged home and they will follow-up with Dr. Anderson tomorrow. I advised they return here or any ER immediately with any new, persistent or worsening symptoms. They verbalized understood and agreed. - Vital Signs Vital signs: Temp Pulse Resp BP Pulse Ox 97.6 F 83 16 109/68 98 10/02/19 01:22 10/02/19 01:22 10/02/19 01:22 10/02/19 01:22 10/02/19 01:22 - Laboratory Result Diagrams: 10/01/19 19:40 10/01/19 19:40 Laboratory results interpreted by me: 10/01/19 10/01/19 10/01/19 19:40 19:40 19:40 RDW 14.2 H Sodium 136.2 L Glucose 122 H Creatine Kinase 316 H Urine Blood 10/02/19 01:00 RDW Sodium Glucose Creatine Kinase Urine Blood SMALL H Discharge - Discharge Clinical Impression: History of brain tumor Altered mental status Qualifiers: Altered mental status type: unspecified Qualified Code(s): R41.82 - Altered mental status, unspecified Condition: Stable Disposition: HOME, SELF-CARE Instructions: Altered Mental Status ([facility]) Additional Instructions: You have been given a copy of the CD with the CAT scan of the head results. Please discuss with Dr. Anderson tomorrow and preferably bring the images to his office tomorrow for review. Please return here or any ER immediately with any new, persistent or worsening symptoms. Referrals: YAQUELIN HERMOSILLO, [Primary Care Provider] - Follow up as needed
--- NOTE | 2019-10-02 01:04 | RADIOLOGY REPORT (SQ) ---
EXAM DESCRIPTION: RadLex: XR CHEST 1 VIEW CLINICAL HISTORY: 48 years Male; AMS, h/o tumor; COMPARISON: 06/12/2017 FINDINGS: Lungs: Lungs are clear, with no focal infiltrate, pneumothorax, or pleural effusion. No pulmonary nodules are identified. Mediastinum: Mediastinum is within normal limits for this positioning. Bones: Bony structures are unremarkable. IMPRESSION: 1. No acute pulmonary findings.
[2019-10-02 01:24] LABS: APPEARANCE,URINE CLEAR; BILIRUBIN,URINE NEGATIVE (NEGATIVE); COLOR,URINE YELLOW; GLUCOSE, URINE NEGATIVE (NEGATIVE); KETONES,URINE NEGATIVE (NEGATIVE); PROTEIN,URINE NEGATIVE (NEGATIVE); URINE SPECIFIC GRAVITY 1.015; UROBILINOGEN,URINE NEGATIVE mg/dL (<2.0)
--- NOTE | 2019-10-02 01:24 | RADIOLOGY REPORT (SQ) ---
EXAM DESCRIPTION: CT HEAD WITHOUT IV CONTRAST COMPLETED DATE/TME: 10/01/2019 23:52 CLINICAL HISTORY: AMS, h/o tumor COMPARISON: 08/30/2019 TECHNIQUE: Axial CT of the head obtained from the skull apex to the skull base without contrast. FINDINGS: No acute intracranial hemorrhage identified. Large left convexity partially calcified mass measuring at least 3.8 x 2.9 x 3.5 cm is again identified producing mass effect on the adjacent sulcal spaces as well as producing vasogenic edema. There is again identified midline shift now measuring 1.0 cm which is slightly increased. Effacement of the left lateral ventricle and persistent mild dilation of the right lateral ventricle. There are multiple other meningiomas, one along the high left lateral convexity measuring at least 2.4 cm in greatest dimension. There is another right parafalcine calcified meningioma measuring at least 1.1 cm in greatest dimension. There is coarse calcification adjacent to the pineal region which may represent a calcified meningioma. Scattered areas of hypodensity in the supratentorial white matter are nonspecific and may represent sequela of chronic small vessel ischemic change. Paranasal sinuses are well aerated. Opacities in the left mastoid air cells. No skull fracture identified. Lucency of the calvarium along the site of multiple meningiomas. Visualized orbits and globes are unremarkable. Atherosclerotic calcification of the intracranial internal carotid arteries. IMPRESSION: 1. Redemonstrated multiple extra-axial masses likely representing meningiomas. The largest is along the left lateral convexity measuring at least 3.8 cm in greatest dimension however this is incompletely characterized due to lack of IV contrast. This mass produces significant local sulcal effacement and vasogenic edema with 1.0 cm [id number]-qk-[id number] midline shift which is slightly increased from the comparison study. MRI with contrast may provide additional characterization. 2. No acute intracranial hemorrhage identified. This exam was performed according to our departmental dose-optimization program, which includes automated exposure control, adjustment of the mA and/or kV according to patient size and/or use of iterative reconstruction technique.
[2019-10-02 02:28] LABS: URINE AMPHETAMINES SCREEN NEGATIVE; URINE BARBITURATES SCREEN NEGATIVE; URINE BENZODIAZEPINES SCREEN NEGATIVE; URINE COCAINE SCREEN NEGATIVE; URINE MARIJUANA (THC) SCREEN NEGATIVE; URINE METHADONE SCREEN NEGATIVE; URINE PHENCYCLIDINE SCREEN NEGATIVE
[2019-10-02 04:09] VITALS: BP 122/62
--- NOTE | 2019-10-02 07:18 | EKG REPORT ---
SEVERITY:- BORDERLINE ECG - SINUS RHYTHM BORDERLINE T ABNORMALITIES, ANTERIOR LEADS : Confirmed by: Rommel Yaenz MD 02-Oct-2019 07:18:04
== END 2019-10-02 04:09 | disposition home or self-care (01) ==
LOC: ER 18:49
DX: R41.0 Disorientation, unspecified (principal); R22.0 Localized swelling, mass and lump, head; D49.9 Neoplasm of unspecified behavior of unspecified site; I10 Essential (primary) hypertension; Z92.3 Personal history of irradiation; Z88.2 Allergy status to sulfonamides; Z88.1 Allergy status to other antibiotic agents; Z85.841 Personal history of malignant neoplasm of brain
CPT/HCPCS: 36415; 70450; 71045; 80053; 80307; 81001; 82140; 82550; 83735; 84484; 85025; 85610; 85730; 93005; 93010; 93971; 99285

== ENCOUNTER 2020-02-02 23:15 | Emergency (ER) | payer MEDICARE ==
--- NOTE | 2020-02-02 23:57 | ER Document Report ---
ED Fall - General Chief Complaint: Fall Stated Complaint: FALL Time Seen by Provider: 02/02/20 23:45 Primary Care Provider: RASHEED DUQUE MD [ACTIVE STAFF] - Follow up as needed TRAVEL OUTSIDE OF THE [place] IN LAST 30 DAYS: No - HPI Notes: Patient is a 49-year-old male with a past medical history of multiple brain tumors who presents after a fall. Patient is with his mother. She states that he likes to be independent and tried to move from his bed to the chair but lost his balance and fell backwards and hit his head on the drawer. He did not pass out. He has not been vomiting. Mother states that he is acting appropriately. She states it was a mechanical fall and was witnessed. Patient is unable to provide a history at baseline but is alert. 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 Mother states that he finished his radiation in September. She was concerned due to the blood thinner and wanted to make sure that he did not have any brain injury. - Related data Allergies/Adverse Reactions: Sulfa (Sulfonamide Antibiotics) Allergy (Verified 10/01/19 18:58) sulfamethoxazole [From Bactrim] Allergy (Verified 10/01/19 18:58) trimethoprim [From Bactrim] Allergy (Verified 10/01/19 18:58) Past Medical History - General Information source: Parent - Social History Smoking Status: Never Smoker Frequency of alcohol use: None Drug Abuse: None Family History: Reviewed & Not Pertinent Patient has homicidal ideation: No - Past Medical History Cardiac Medical History: Reports: Hx Hypercholesterolemia, Hx Hypertension Renal/ Medical History: Denies: Hx Peritoneal Dialysis Malignancy Medical History: Reports Hx Brain Cancer - Immunizations Hx Diphtheria, Pertussis, Tetanus Vaccination: Yes Review of Systems - Review of Systems Notes: Obtained from mother: CONSTITUTIONAL: No fever, fatigue or weight loss. SKIN: No rash. HENT: No congestion, ear pain, or sore throat. . RESPIRATORY: No cough, shortness of breath, congestion, or wheezing. GASTROINTESTINAL: No abdominal pain, nausea, vomiting, bloody stools or diarrhea. MUSCULOSKELETAL: No joint pain or swelling. NEUROLOGIC: No seizures. HEMATOLOGIC: No unusual bruising or bleeding. PSYCHIATRIC: No depression or anxiety. Physical Exam - Vital signs Vitals: Temp Pulse Resp BP Pulse Ox 97.8 F 92 14 128/78 H 97 02/02/20 23:23 02/02/20 23:23 02/02/20 23:23 02/02/20 23:23 02/02/20 23:23 - Notes Notes: VITAL SIGNS: Within normal limits. GENERAL: No acute distress, non-toxic appearance. HEAD: Normal with no signs of head trauma. EYES: EOMI, conjunctiva normal, no discharge. EARS: Hearing grossly intact. NOSE: Normal. NECK: C-collar on CHEST: Clear breath sounds bilaterally. No wheezes, rales, or rhonchi. CARDIAC: Regular rate and rhythm. S1 and S2, without murmurs, gallops, or rubs. ABDOMEN: Normal and soft with no tenderness, no masses or pulsatile masses. GENITOURINARY: Normal, No tenderness MUSCULOSKELETAL: Range of motion of left arm and left leg intact. Chronic cyst to right arm and right leg. NEUROLOGICAL: Alert PSYCHIATRIC: Normal Affect, judgement and mood. SKIN: Normal appearance with no rashes or lesions. Course - Re-evaluation Re-evalutation: 02/03/20 01:[address] does not show any bleeding. There is improvement of his previous meningiomas. Patient cervical spine is also negative. He does not have any lacerations or bleeding to the back of his head. Patient is acting appropriately and at baseline. Mother is very comfortable taking him home. Patient and mother were told to follow-up with her PCP and return for any concerning symptoms. - Vital Signs Vital signs: Temp Pulse Resp BP Pulse Ox 97.8 F 92 14 133/79 H 95 02/02/20 23:23 02/02/20 23:23 02/03/20 01:00 02/02/20 23:33 02/03/20 01:00 Discharge - Discharge Clinical Impression: Fall Qualifiers: Encounter type: initial encounter Qualified Code(s): W19.XXXA - Unspecified fall, initial encounter Closed head injury Qualifiers: Encounter type: initial encounter Qualified Code(s): S09.90XA - Unspecified injury of head, initial encounter Condition: Stable Disposition: HOME, SELF-CARE Instructions: Head Injury Precautions ([facility]) Additional Instructions: Please follow-up with your family doctor. Please return to the ER for any headache, lightheadedness, vomiting, any other concerning symptoms. Referrals: RASHEED DUQUE MD [ACTIVE STAFF] - Follow up in 3-5 days
[2020-02-03 01:01] LABS: INTERNATIONAL RATION (INR) 0.96
--- NOTE | 2020-02-03 01:01 | RADIOLOGY REPORT (SQ) ---
CT cervical spine without contrast on 02/03/2020 at 12:26 AM CLINICAL INDICATION: Trauma, pain TECHNIQUE: Multiple axial images are obtained throughout the cervical spine without the administration of contrast. Sagittal and coronal reformatted images are also performed and reviewed. This exam was performed according to our departmental dose-optimization program, which includes automated exposure control, adjustment of the mA and/or kV according to patient size and/or use of iterative reconstruction technique. Total DLP is 430.52 mGy*cm. COMPARISON: None FINDINGS: Reformatted images reveal normal alignment of the cervical spine. Degenerative disc disease is noted especially from C5 through C7. There is no prevertebral soft tissue swelling. There are no acute fracture lines. No definite disc herniation is noted. IMPRESSION: Degenerative changes with no acute abnormality.
--- NOTE | 2020-02-03 01:06 | RADIOLOGY REPORT (SQ) ---
CT head without contrast on 02/03/2020 at 12:24 AM CLINICAL INDICATION: Trauma, history of brain tumors TECHNIQUE: Multiple axial images are obtained throughout the head without the administration of contrast. This exam was performed according to our departmental dose-optimization program, which includes automated exposure control, adjustment of the mA and/or kV according to patient size and/or use of iterative reconstruction technique. Total DLP is 937.36 mGy*cm. COMPARISON: MRI from 08/30/[address] from 10/02/2019 FINDINGS: There are again noted multiple partially calcified left-sided meningiomas with the largest in the left temporal lobe.. There has been improvement in prior left-sided vasogenic edema and improvement in left to right midline shift. Bumj-sq-lfyju midline shift now measures only approximately 2 mm. There is no hydrocephalus. The left parietal meningioma has likely decreased in size although this is difficult to measure on this unenhanced exam. Bilateral basal ganglia calcifications are noted. There is no hydrocephalus. There is a small old left caudate lacunar infarct again noted. There is low-density in the periventricular white matter consistent with chronic small vessel ischemic changes. There is no hemorrhage. There are no abnormal extra-axial fluid collections. No new or worsening mass is noted. No bony abnormality is noted. IMPRESSION: Stable or improved appearance of multiple left-sided meningiomas with improvement in left-sided vasogenic edema and improved left to right midline shift.
[2020-02-03 02:12] VITALS: BP 118/76
== END 2020-02-03 02:30 | disposition home or self-care (01) ==
LOC: ER 23:15
DX: S09.90XA Unspecified injury of head, initial encounter (principal); D32.0 Benign neoplasm of cerebral meninges; W06.XXXA Fall from bed, initial encounter; I10 Essential (primary) hypertension; Z79.01 Long term (current) use of anticoagulants; Z86.711 Personal history of pulmonary embolism; Z86.718 Personal history of other venous thrombosis and embolism; Z88.2 Allergy status to sulfonamides; Z88.8 Allergy status to other drugs, medicaments and biological substances
CPT/HCPCS: 36415; 70450; 72125; 85610; 99284

== ENCOUNTER 2020-02-08 16:02 | Emergency (ER) | payer MEDICARE, OTHER ==
--- NOTE | 2020-02-08 18:21 | RADIOLOGY REPORT (SQ) ---
EXAM DESCRIPTION: CT HEAD WITHOUT IMAGES COMPLETED DATE/TIME: 02/08/2020 5:51 pm REASON FOR STUDY: fall, blood thinner COMPARISON: 02/03/2020, 02/01/2020 TECHNIQUE: Axial images acquired through the brain without intravenous contrast. Images reviewed wi th bone, brain and subdural windows. Additional sagittal and coronal reconstructions were generated. Images stored on PACS. All CT scanners at this facility use dose modulation, iterative reconstruction, and/or weight based d osing when appropriate to reduce radiation dose to as low as reasonably achievable (ALARA). [facility]: Dose Right [facility]: CareDose [facility]: Dose Right [facility]: Teradose 4D [facility]: Smart [employer] RADIATION DOSE: CT Rad equipment meets quality standard of care and radiation dose reduction techniq ues were employed. CTDIvol: 55.2 mGy. DLP: 1056 mGy-cm. mGy. LIMITATIONS: None. FINDINGS: VENTRICLES: Normal size and contour. CEREBRUM: Chronic meningiomas by history in the left hemisphere. Largest is left parietal and this a ppears to be stable since September 2019 Additional apparent meningioma difficult to U outlined because of lack of contrast is in the left par ietooccipital lobe. There is has been an interval gamma knife surgery since September with reduction in t he vasogenic edema on the previous study of 02/03/2020. Since the study of 02/03/2020, there has been interval hemorrhage in the meningioma causing mild incr ease in the vasogenic edema as well as compression of the occipital horn of the left lateral ventricl e. There is very minimal midline shift. Findings in the right hemisphere intact. Left midbrain calcification intact. Normal dobbins/white matte r differentiation. No areas of low density in the white matter. CEREBELLUM: No masses. No hemorrhage. No alteration of density. No evidence for acute infarction. EXTRAAXIAL SPACES: No fluid collections. No masses. ORBITS AND GLOBE: No intra- or extraconal masses. Normal contour of globe without masses. CALVARIUM: No fracture. PARANASAL SINUSES: No fluid or mucosal thickening. SOFT TISSUES: No mass or hematoma. OTHER: No other significant finding. IMPRESSION: Interval hemorrhage in or adjacent to the left parietooccipital meningioma causing compr ession of the ipsilateral occipital horn of the left lateral ventricle and very minimal midline shift . This has occurred since the study of 02/03/2020. The other meningioma in the left temporal lobe appears to be stable. Other findings are stable. EVIDENCE OF ACUTE STROKE: NO. COMMENT: Pertinent findings on the imaging study reported as a CRITICAL RESULT to JC PEARSON MD at18:15 on 02/08/2020. Category of Critical Result: Intracranial hemorrhage Quality ID # [id number]: Final reports with documentation of one or more dose reduction techniques (e.g., Au tomated exposure control, adjustment of the mA and/or kV according to patient size, use of iterative reconstruction technique) TECHNICAL DOCUMENTATION: JOB ID: [id number] 2010 [employer]- All Rights Reserved Reading location - IP/workstation name: [email or web address]
--- NOTE | 2020-02-08 18:58 | ER Document Report ---
ED Fall - General Chief Complaint: Fall Injury Stated Complaint: FALL SWOLLEN FACE Time Seen by Provider: 02/08/20 16:50 Primary Care Provider: YAQUELIN HERMOSILLO DO [Primary Care Provider] - Follow up as needed Notes: This 49-year-old man presents to the emergency department with a history of meningioma which are being managed at [facility]. He presents to the ER with history of a fall at home. According to his mother, he did not hit his head, however, he is on blood thinners for DVT and pulmonary embolus, he is brought to the ER for evaluation. He was seen in the emergency department on 02/02/2020 with a fall at that time no intracerebral hemorrhage was noted. Apparently, he has been having speech difficulty that started after the fall on 02/02/20. Today he was on the way to [facility] for outpatient scans to evaluate the change in speech. He was scheduled for outpatient MRI. After the fall, patient's mother contacted his radiation oncologist, Dr. Sky. They were directed to come to the emergency department for further evaluation, EMS was called and the patient was transported. He also patient is seen by [facility] Neurologist, Dr. Anderson. Patient is alert, but only responds to yes/no questions. He is on lovenox, due to a history DVT and pulmonary embolus. TRAVEL OUTSIDE OF THE [place] IN LAST 30 DAYS: No - Related data Allergies/Adverse Reactions: Sulfa (Sulfonamide Antibiotics) Allergy (Verified 10/01/19 18:58) sulfamethoxazole [From Bactrim] Allergy (Verified 10/01/19 18:58) trimethoprim [From Bactrim] Allergy (Verified 10/01/19 18:58) Past Medical History - Social History Smoking Status: Never Smoker Frequency of alcohol use: None Drug Abuse: None Family History: Reviewed & Not Pertinent - Past Medical History Cardiac Medical History: Reports: Hx Hypercholesterolemia, Hx Hypertension Renal/ Medical History: Denies: Hx Peritoneal Dialysis Malignancy Medical History: Reports Hx Brain Cancer - Immunizations Hx Diphtheria, Pertussis, Tetanus Vaccination: Yes Review of Systems - Review of Systems Notes: Constitutional: Negative for fever. HENT: Negative for sore throat. Eyes: Negative for visual changes. Cardiovascular: Negative for chest pain. Respiratory: Negative for shortness of breath. Gastrointestinal: Negative for abdominal pain, vomiting or diarrhea. Genitourinary: Negative for dysuria. Musculoskeletal: + Ecchymosis Skin: Negative for rash. Neurological:+Deterioration of speech . 10 point ROS negative except as marked above and in HPI. Physical Exam - Vital signs Vitals: Temp Resp BP Pulse Ox 98.0 F 24 H 128/75 H 98 02/08/20 16:05 02/08/20 16:05 02/08/20 16:05 02/08/20 16:05 Course - Re-evaluation Re-evalutation: 02/08/20 19:[address] scan reveals hemorrhage in or adjacent to the left parieto-occipital meningioma causing compression of the ipsilateral occipital horn of the left lateral ventricle and a very minimal midline shift. I have contacted the radiation oncologist Dr. Ham, he has suggested the patient be to transfer to floor for closer monitoring and treatment. I have contacted trauma services at [facility], Dr. Barrear, has agreed to accept the patient as a trauma green patient to get transport to [place] and will consult with his ongoing care team regarding treatment. Discussed this plan with mother and explained that given his hemorrhage and Lovenox treatment we would like to expedite his transfer she also has agreed to the air transport to [place]. 02/08/20 19:59 Transfer Evaluation Prior to Transport. Patient is being transferred to [facility] , evaluation at the time of transfer, patient is hemodynamically stable. Transport team successfully moved the patient onto the stretcher without incident. Patient stable for transport. - Vital Signs Vital signs: Temp Pulse Resp BP Pulse Ox 98.0 F 16 131/66 H 96 02/08/20 16:05 02/08/20 18:01 02/08/20 18:01 02/08/20 18:01 - Laboratory Result Diagrams: 02/08/20 19:04 02/08/20 19:04 Laboratory results interpreted by me: 02/08/20 02/08/20 19:04 19:04 WBC 23.1 H RBC 3.79 L Hgb 11.6 L Hct 33.4 L RDW 17.1 H Sodium 123.7 L Potassium 2.6 L* Chloride 70 L Carbon Dioxide 46 H* BUN 33 H AST 155 H ALT 460 H Alkaline Phosphatase 134 H Total Protein 6.0 L - Diagnostic Test Radiology reviewed: Image reviewed, Reports reviewed Radiology results interpreted by me: 02/08/20 19:[address] 02/08/20 17:24 IMPRESSION: Interval hemorrhage in or adjacent to the left parietooccipital meningioma causing compression of the ipsilateral occipital horn of the left lateral ventricle and very minimal midline shift. This has occurred since the s tudy of 02/03/2020. The other meningioma in the left temporal lobe appears to be stable. Other find ings are stable. EVIDENCE OF ACUTE STROKE: NO. Critical Care Note - Critical Care Note Total time excluding time spent on procedures (mins): 45 - Critical care time spent obtaining history from patient or surrogate, discussions with consultants, development of treatment plan with patient or surrogate, evaluation of patient's response to treatment, examination of patient, ordering and performing treatments and interventions, ordering and review of laboratory studies, re- evaluation of patient's condition, ordering and review of radiographic studies and review of old charts Discharge - Discharge Clinical Impression: Intracerebral hemorrhage Qualifiers: Intracerebral hemorrhage etiology: traumatic Encounter type: initial encounter Laterality: left Loss of consciousness presence/duration: without LOC Qualified Code(s): S06.350A - Traumatic hemorrhage of left cerebrum without loss of consciousness, initial encounter Fall Qualifiers: Encounter type: initial encounter Qualified Code(s): W19.XXXA - Unspecified fall, initial encounter Disposition: [facility] Referrals: YAQUELIN HERMOSILLO DO [Primary Care Provider] - Follow up as needed
[2020-02-08 19:15] VITALS: BP 131/66
[2020-02-08 19:22] LABS: HEMATOCRIT 33.4 % (37.9-51.0); HEMOGLOBIN 11.6 g/dL (13.5-17.0); MEAN CORPUSCULAR HEMOGLOBIN 30.6 pg (27.0-33.4); MEAN CORPUSCULAR HGB CONC 34.7 g/dL (32.0-36.0); MEAN CORPUSCULAR VOLUME 88 fl (80-97); PLATELET COUNT 254 10^3/uL (150-450); RED BLOOD COUNT 3.79 10^6/uL (4.35-5.55); RED CELL DISTRIBUTION WIDTH 17.1 % (11.5-14.0); WHITE BLOOD COUNT 23.1 10^3/uL (4.0-10.5)
[2020-02-08] MEDS ORDERED: NORMAL SALINE 1000 ML 1,000 ML IV ONE (19:25)
[2020-02-08 19:31] LABS: INTERNATIONAL RATION (INR) 0.96
[2020-02-08 19:38] LABS: ALBUMIN 3.6 g/dL (3.5-5.0); ALKALINE PHOSPHATASE 134 U/L (38-126); ASPARTATE AMINO TRANSFERASE 155 U/L (17-59); BILIRUBIN,DIRECT 0.3 mg/dL (0.0-0.4); BILIRUBIN,TOTAL 0.9 mg/dL (0.2-1.3); BLOOD UREA NITROGEN 33 mg/dL (7-20); CHLORIDE 70 mmol/L (98-107); GLUCOSE 104 mg/dL (75-110)
[2020-02-08 19:39] LABS: PARTIAL THROMBOPLASTIN TIME 31.9 SEC (23.5-35.8)
[2020-02-08 19:46] LABS: ANION GAP 8 (5-19); POTASSIUM 2.6 mmol/L (3.6-5.0)
[2020-02-08 19:47] LABS: CARBON DIOXIDE 46 mmol/L (22-30)
[2020-02-08 19:53] LABS: ABSOLUTE LYMPHOCYTES# (MANUAL) 4.6 10^3/uL (0.5-4.7); ABSOLUTE MONOCYTES # (MANUAL) 1.4 10^3/uL (0.1-1.4); BASOPHILS % (MANUAL) 0 % (0-2); EOSINOPHILS % (MANUAL) 0 % (0-6); LYMPHOCYTES % (MANUAL) 20 % (13-45); MONOCYTES % (MANUAL) 6 % (3-13); SEGMENTED NEUTROPHILS % (MAN) 74 % (42-78); TOTAL CELLS COUNTED 100
[2020-02-08 20:03] LABS: ANISOCYTOSIS 1+; PLATELET COMMENT ADEQUATE; TOXIC GRANULATION SLIGHT; TOXIC VACUOLATION PRESENT
== END 2020-02-08 20:03 | disposition short-term general hospital (02) ==
LOC: ER 16:02
DX: S06.350A Traumatic hemorrhage of left cerebrum without loss of consciousness, initial encounter (principal); D32.9 Benign neoplasm of meninges, unspecified; R22.0 Localized swelling, mass and lump, head; W19.XXXA Unspecified fall, initial encounter; Y92.009 Unspecified place in unspecified non-institutional (private) residence as the place of occurrence of the external cause; E78.00 Pure hypercholesterolemia, unspecified; I10 Essential (primary) hypertension; Z86.718 Personal history of other venous thrombosis and embolism; Z79.01 Long term (current) use of anticoagulants; Z86.711 Personal history of pulmonary embolism; Z88.2 Allergy status to sulfonamides; Z88.3 Allergy status to other anti-infective agents
CPT/HCPCS: 99285; 36415; 85025; 85610; 85730; 80053; 70450; J7030